=== PATIENT | male | born 1975 ===

== ENCOUNTER 2021-05-25 17:40 | Emergency (ER) | payer SELFPAY ==
[~2021-05-25] VITALS: Ht 160 cm; Wt 71.5 kg
[2021-05-25 18:06] VITALS: BP 125/79
[2021-05-25] MEDS ORDERED: DIPHTH,PERTUSS(ACELL),TET TOX 0.5 ML DISP.SYRIN. VAX IM ONE (19:45)
[2021-05-25] MEDS ORDERED: AMOX1TAB61 PO (20:00)
--- NOTE | 2021-05-25 20:00 | PHYS DOC ---
Past Medical History Past Surgical History: No Surgical History (NITISH BENAVIDES APRN) Smoking Status: Current Every Day Smoker Alcohol Use: None (NITISH BENAVIDES APRN) General Adult EDM: Chief Complaint: ANIMAL BITE HPI: HPI: Patient is a 46 year old 46-year-old male patient presenting to the ED today complaining of dog bite. Patient got beat by a neighbor's dog. (NITISH BENAVIDES APRN) Review of Systems: Review of Systems: Constitutional: Denies fever or chills. [] Musculoskeletal: Denies back pain or joint pain. [] Integument: Reports dog bites Neurologic: Denies headache, focal weakness or sensory changes. [] Psychiatric: Denies depression or anxiety. [] (NITISH BENAVIDES APRN) Heart Score: C/O Chest Pain: N/A Risk Factors: Risk Factors: DM, Current or recent (<one month) smoker, HTN, HLP, family history of CAD, obesity. Risk Scores: Score 0 - 3: 2.5% MACE over next 6 weeks - Discharge Home Score 4 - 6: 20.3% MACE over next 6 weeks - Admit for Clinical Observation Score 7 - 10: 72.7% MACE over next 6 weeks - Early Invasive Strategies (NITISH BENAVIDES APRN) Current Medications: Current Medications Medications (Trade) Dose Ordered Sig/Ronel Start Time Stop Time Status Last Admin Dose Admin Diphtheria/ Tetanus/Acell Pertussis (Boostrix) 0.5 ml ONCE ONCE 05/25/21 19:45 05/25/21 19:49 DC 05/25/21 19:54 0.5 ML (NITISH BENAVIDES APRN) Allergies: Allergies: Allergies Coded Allergies Type Severity Reaction Last Updated Verified No Known Drug Allergies 05/25/21 No (NITISH BENAVIDES APRN) Physical Exam: PE: Constitutional: Well developed, well nourished, no acute distress, non-toxic appearance. [] Skin: Tiny puncture wound noted on the right ring finger medial aspect distal end, neurovascular exam is intact to the right fingers. Full range of motion to the right fingers. Bruising noted on the right lateral elbow, bruising also noted to the right hip, dog bite martinez noted on the right mid/lower back. Back: No tenderness, no CVA tenderness. [] Extremities: No tenderness, no cyanosis, no clubbing, ROM intact, no edema. [] Neurologic: Alert and oriented X 3, normal motor function, normal sensory function, no focal deficits noted. [] Psychologic: Affect normal, judgement normal, mood normal. [] (NITISH BENAVIDES CATHEAD OPERATOR) Current Patient Data: Vital Signs: Vital Signs Date Time Temp Pulse Resp B/P (MAP) Pulse Ox O2 Delivery O2 Flow Rate FiO2 05/25/21 18:06 98.2 65 12 125/79 (94) 99 Room Air 98.2 (NITISH BENAVIDES CATHEAD OPERATOR) EKG: EKG: [] (NITISH BENAVIDES CATHEAD OPERATOR) Radiology/Procedures: Radiology/Procedures: [] (NITISH BENAVIDES APRN) Course & Med Decision Making: Course & Med Decision Making Pertinent Labs and Imaging studies reviewed. (See chart for details) This a 46-year-old male patient presenting to the ED today with dog bite. Patient was put on Augmentin, tetanus updated. Wound care instructions and return precautions provided (NITISH BENAVIDES CATHEAD OPERATOR) Dragon Disclaimer: Dragon Disclaimer: This electronic medical record was generated, in whole or in part, using a voice recognition dictation system. (NITISH BENAVIDES CATHEAD OPERATOR) Departure Departure Impression: Primary Impression: Dog bite Qualified Codes: W54.0XXA - Bitten by dog, initial encounter Disposition: HOME / SELF CARE / HOMELESS Condition: STABLE Referrals: NO PCP (PCP) Follow-up with your own doctor in 1 week Patient Instructions: Animal Bite, [id number] Additional Instructions: You were seen for dog bites. We put you on antibiotics, take them as prescribed until completed. Wash the areas with regular soap and water and leave them open to air if they are not bleeding or draining. Come back to the ED at any point wound condition worsens. Follow-up with your doctor in 1 to 2 weeks Scripts Amoxicillin/Potassium Clav (AUGMENTIN 875-125 TABLET) 1 Each Tablet 1 TAB PO BID for 10 Days, #20 TAB 0 Refills Prov: NITISH BENAVIDES APRN 05/25/21 Attending Signature Attending Signature I have reviewed the PA/AUTO BODY ESTIMATOR's note and plan of care. I was available for consultation as needed during the patient's visit in the emergency department. I agree with the clinical impression, plan, and disposition. (JESUS ANAYA DO) NITISH BENAVIDES APRN May 25, 2021 20:00 JESUS ANAYA DO May 26, 2021 20:21
== END 2021-05-25 20:25 | disposition home or self-care (01) ==
LOC: ER 17:40
DX: S61.254A Open bite of right ring finger without damage to nail, initial encounter (principal); F17.200 Nicotine dependence, unspecified, uncomplicated; W54.0XXA Bitten by dog, initial encounter; Y93.89 Activity, other specified; Y92.89 Other specified places as the place of occurrence of the external cause; Y99.8 Other external cause status
CPT/HCPCS: 90471; 90715; 99283-25